=== PATIENT | female | born 1955 | race Caucasian/White ===

== ENCOUNTER 2019-03-10 11:24 | Emergency (ER) | payer MEDICAID, OTHER ==
--- NOTE | 2019-03-10 12:11 | ED PDOC ---
HPI: CCC, URI, Sore Throat Time Seen by Provider: 03/10/19 11:53 Chief Complaint (Nursing): Flu-like Symptoms History Per: Patient Onset/Duration Of Symptoms: Days (2) Current Symptoms Are (Timing): Still Present Location Of Pain: Throat, Diffuse Myalgias Associated Symptoms: Fever, Sore Throat, Cough, Myalgias. denies: Sputum Additional Complaint(s): Non productive cough assoc with body aches fever and sore throat x 2 days. denies SOB. Has chest and abd pain when coughing. Past Medical History Vital Signs: Last Vital Signs Temp 99.9 F H 03/10/19 11:45 Pulse 75 03/10/19 11:45 Resp 17 03/10/19 11:45 BP 118/60 03/10/19 11:45 Pulse Ox 96 03/10/19 11:45 - Medical History PMH: Diabetes - Family History Family History: States: Unknown Family Hx - Immunization History Hx Tetanus Toxoid Vaccination: No Hx Influenza Vaccination: No Hx Pneumococcal Vaccination: No - Home Medications Home Medications: Ambulatory Orders Medication Instructions Recorded Clindamycin [Cleocin] 300 mg PO Q8H #15 cap 08/03/17 Insulin NPH Hum/Reg Insulin Hm 20 units SC BID #1 syr 08/03/17 [Humulin 70/30 Kwikpen 70 U/ml-30 U/ml 3 ml] Saccharomyces Boulardi [Florastor] 250 mg PO DAILY #14 cap 08/03/17 Azithromycin [Zithromax] 250 mg PO DAILY #6 tab 03/10/19 Benzonatate [Tessalon Perle] 100 mg PO Q8 #12 capsule 03/10/19 - Allergies Allergies/Adverse Reactions: Allergies Allergy/AdvReac Type Severity Reaction Status Date / Time No Known Allergies Allergy Verified 08/01/17 18:27 Review of Systems ROS Statement: Except As Marked, All Systems Reviewed And Found Negative Constitutional: Positive for: Fever, Malaise ENT: Positive for: Throat Pain Respiratory: Positive for: Cough Physical Exam - Reviewed Nursing Documentation Reviewed: Yes Vital Signs Reviewed: Yes - Physical Exam Appears: Positive for: Non-toxic, No Acute Distress Head Exam: Positive for: ATRAUMATIC, NORMAL INSPECTION, NORMOCEPHALIC Skin: Positive for: Normal Color, Warm, DRY Eye Exam: Positive for: EOMI, Normal appearance, PERRL ENT: Positive for: Normal ENT Inspection Neck: Positive for: Normal, Painless ROM Cardiovascular/Chest: Positive for: Regular Rate, Rhythm Respiratory: Positive for: Rhonchi. Negative for: Wheezing, Respiratory Distress Gastrointestinal/Abdominal: Positive for: Normal Exam, Soft Back: Positive for: Normal Inspection Extremity: Positive for: Normal ROM Neurological/Psych: Positive for: Awake, Alert, Normal Tone - ECG O2 Sat by Pulse Oximetry: 96 Disposition - Clinical Impression Clinical Impression: Bronchitis - Patient ED Disposition Is Patient to be Admitted: No Counseled Patient/Family Regarding: Studies Performed, Diagnosis, Need For Followup, Rx Given - Disposition Referrals: FAMILY PROVIDER,NO [Primary Care Provider] - Disposition: Routine/Home Disposition Time: 13:26 Condition: FAIR Prescriptions: Azithromycin [Zithromax] 250 mg PO DAILY #6 tab Benzonatate [Tessalon Perle] 100 mg PO Q8 #12 capsule Instructions: Acute Bronchitis Forms: [facility] (Setswana)
[2019-03-10 13:33] VITALS: BP 110/78; PULSE 78; RESP 19; TEMP 98.8; O2SAT 98
--- NOTE | 2019-03-10 14:16 | RAD ---
Date of service: 03/10/2019 HISTORY: Cough COMPARISON: No prior. TECHNIQUE: Chest PA and lateral FINDINGS: LINES AND TUBES: None. LUNG AND PLEURA: The lungs are well inflated and clear. No pleural effusion or pneumothorax. HEART AND MEDIASTINUM: The heart is not enlarged. No aortic atherosclerotic calcifications present. The hilar and mediastinal contours are within normal limits. SKELETAL STRUCTURES: The bony structures are within normal limits for the patient's age. VISUALIZED UPPER ABDOMEN: Normal. OTHER FINDINGS: None. IMPRESSION: No active pulmonary disease.
== END 2019-03-10 13:44 | disposition home or self-care (01) ==
LOC: H.ER 11:24 → SUPCPDRO 11:24 → H.ER 13:44
DX: J40 Bronchitis, not specified as acute or chronic (principal)